=== PATIENT | male | born 1980 | race Caucasian/White ===

== ENCOUNTER 2016-07-31 09:21 | Observation (INO) | payer MEDICAID ==
[2016-07-31] MEDS ORDERED: Sodium Chloride 0.9% 1,000 ML IV ONE (09:23)
[2016-07-31] MEDS ORDERED: Sodium Chloride 0.9% 2.5 ML Syringe FLUSH PRN (09:24)
[2016-07-31] MEDS ORDERED: Sodium Chloride 0.9% 10 ML Syringe FLUSH PRN (09:24)
--- NOTE | 2016-07-31 09:29 | EDM.PDOC ---
ED HPI GENERAL MEDICAL PROBLEM - General Stated Complaint: AMBULANCE Time Seen by Provider: 07/31/16 09:22 - History of Present Illness INITIAL COMMENTS - FREE TEXT/NARRATIVE: HISTORY AND PHYSICAL: History of present illness: Patient is a 35-year-old male who is an inmate at a nursing home and presents with a episode of lightheadedness/near syncope that occurred at rest. The patient denies any cardiac or pulmonary history and does have a history of anxiety and depression, for which he was recently placed on new medication for his depression. He is not currently expressing suicidal ideation and he says that he woke up this morning felt completely normal, went to breakfast, ate normally , and then had the symptoms after that. He said he just felt lightheaded and felt sweaty but did not pass out. The patient says he did not feel dizzy like the room was spinning. He had no chest pain shortness of breath headache extremity weakness pain numbness or tingling abdominal pain nausea or vomiting. Patient is eating and passing normal bowel movements which are now black or bloody. In the ER the patient currently has no symptoms and feels back to his baseline although he does feel somewhat fatigued generalized without any focality. He denies any cough fever chills runny nose or sore throat and has no headache or neck pain. The patient does state that he has a backache on and off for which he takes Tylenol and ibuprofen when he is at home and that is not new or different. According to the nursing home report the patient was more clammy and cool and complained of dizziness and nausea at the time of the event which is different than what he stating to me. He did deny chest pain or shortness of breath at that time. According to the officer at bedside he has been in nursing home for several months and did have a history of drug use in the past. Review of systems: As per history of present illness and below otherwise all systems reviewed and negative. Past medical history: As per history of present illness and as reviewed below otherwise noncontributory. Surgical history: As per history of present illness and as reviewed below otherwise noncontributory. Social history: No reported history of drug or alcohol abuse. Family history: As per history of present illness and as reviewed below otherwise noncontributory. Physical exam: General: Well-developed well-nourished male nontoxic vital signs were reviewed by me. Speaking clearly and easily moving all extremities and is currently in handcuffs with Offficer at bedside HEENT: Atraumatic, normocephalic, pupils reactive, negative for conjunctival pallor or scleral icterus, mucous membranes moist, throat clear, neck supple, nontender, trachea midline. No cervical adenopathy or nuchal rigidity Lungs: Clear to auscultation, breath sounds equal bilaterally, chest nontender. Heart: S1S2, regular, negative for clicks, rubs, or JVD. Abdomen: Soft, nondistended, nontender. Negative for masses or hepatosplenomegaly. Negative for costovertebral tenderness. Pelvis: Stable nontender. Genitourinary: Deferred. Rectal: Deferred. Extremities: Atraumatic, negative for cords or calf pain. Neurovascular unremarkable. Full range of motion without defects or deficits Neuro: Awake, alert, oriented. Cranial nerves II through XII unremarkable. Cerebellum unremarkable. Motor and sensory unremarkable throughout. Exam nonfocal. 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 Antoine; he will review the testing results and come and evaluate the patient personally to decide on disposition. He is aware that the patient has been slowly getting his IV fluids because the patient extending his arm and he has only received 900 cc but we will continue to give IV fluids and reevaluate. 1145: Dr. Antoine has seen and evaluated the patient and would like to admit the patient as observation in telemetry for 23 hours. Patient is agreeable Impression: Near syncope Definitive disposition and diagnosis as appropriate pending reevaluation and review of above. Back Pain Score (Numeric/FACES): 5 - Related Data Allergies Allergy/AdvReac Type Severity Reaction Status Date / Time No Known Allergies Allergy Verified 07/31/16 09:26 Home Meds: Home Meds . [No Known Home Meds] 06/18/14 [History] Escitalopram [Lexapro] 0 mg PO DAILY 07/31/16 [History] Ranitidine HCl [Zantac] 0 mg PO 07/31/16 [History] risperiDONE [Risperdal] 1 mg PO 07/31/16 [History] ED ROS GENERAL - Review of Systems Review Of Systems: ROS reveals no pertinent complaints other than HPI. ED EXAM, GENERAL - Physical Exam Exam: See Below (see dictation) Course - Vital Signs Last Recorded V/S: Last Vital Signs Temp 36.6 C 07/31/16 09:21 Pulse 70 07/31/16 11:09 Resp 16 07/31/16 11:09 BP 93/49 L 07/31/16 11:09 Pulse Ox 98 07/31/16 11:09 Orthostatic Blood Pressure [ 91/47 Standing] Orthostatic Blood Pressure [ 91/43 Sitting] Orthostatic Blood Pressure [ 87/39 Supine] - Orders/Labs/Meds Orders: Active Orders 24 hr Category Date Time Status Patient Status [ADT] Stat ADT 07/31/16 11:52 Ordered Cardiac Monitoring [RC] . DIRECTED Care 07/31/16 09:22 Active EKG Documentation Completion [RC] STAT Care 07/31/16 09:22 Active Orthostatic Vital Signs [RC] ASDIRECTED Care 07/31/16 09:24 Active Oxygen Therapy, ED [RC] ASDIRECTED Care 07/31/16 09:22 Active Pulse Oximetry [RC] ASDIRECTED Care 07/31/16 09:22 Active Sodium Chloride 0.9% [Saline Flush] Med 07/31/16 09:24 Active 10 ml FLUSH ASDIRECTED PRN Sodium Chloride 0.9% [Saline Flush] Med 07/31/16 09:24 Active 2.5 ml FLUSH ASDIRECTED PRN Saline Lock Insert [OM.PC] Stat Oth 07/31/16 09:22 Ordered Medication Orders Sodium Chloride (Saline Flush) 10 ml FLUSH ASDIRECTED PRN PRN Reason: Keep Vein Open Last Admin: 07/31/16 09:48 Dose: 10 ml Sodium Chloride (Saline Flush) 2.5 ml FLUSH ASDIRECTED PRN PRN Reason: Keep Vein Open Last Admin: 07/31/16 09:48 Dose: 2.5 ml Labs: Laboratory Tests 07/31/16 07/31/16 07/31/16 Range/Units 09:36 09:36 09:36 WBC 3.45 L (4.0-11.0) K/uL RBC 4.11 L (4.50-5.90) M/uL Hgb 13.0 (13.0-17.0) g/dL Hct 37.3 L (38.0-50.0) % MCV 90.8 (80.0-98.0) fL MCH 31.6 (27.0-32.0) pg MCHC 34.9 (31.0-37.0) g/dL RDW Std Deviation 41.9 (28.0-62.0) fl RDW Coeff of Roberth 13 (11.0-15.0) % Plt Count 119 L (150-400) K/uL MPV 9.00 (7.40-12.00) fL Neut % (Auto) 64.1 (48.0-80.0) % Lymph % (Auto) 27.2 (16.0-40.0) % [place] % (Auto) 6.1 (0.0-15.0) % Eos % (Auto) 1.7 (0.0-7.0) % Baso % (Auto) 0.9 (0.0-1.5) % Neut # (Auto) 2.2 (1.4-5.7) K/uL Lymph # (Auto) 0.9 (0.6-2.4) K/uL [place] # (Auto) 0.2 (0.0-0.8) K/uL Eos # (Auto) 0.1 (0.0-0.7) K/uL Baso # (Auto) 0.0 (0.0-0.1) K/uL Nucleated RBC % 0.0 /100WBC Nucleated RBCs # 0 K/uL Sodium 142 (136-146) mmol/L Potassium 4.4 (3.5-5.1) mmol/L Chloride 106 (98-110) mmol/L Carbon Dioxide 27 (21-31) mmol/L BUN 25 H (6.0-23.0) mg/dL Creatinine 1.2 (0.6-1.5) mg/dL Est Cr Clr Drug Dosing 107.25 mL/min Estimated GFR (MDRD) > 60.0 ml/min Glucose 142 H (60-110) mg/dL Calcium 9.0 (8.8-10.8) mg/dL Total Bilirubin 0.8 (0.1-1.5) mg/dL AST 10 (5-40) IU/L ALT 15 (8-54) IU/L Alkaline Phosphatase 43 (40-150) Troponin I < 0.10 (0.0-0.29) NG/ML Total Protein 6.6 (6.0-8.0) g/dL Albumin 4.1 (3.5-5.0) g/dL Globulin 2.5 (2.0-3.5) g/dL Albumin/Globulin Ratio 1.6 (1.3-2.8) Lipase 16 (7-80) U/L Urine Color Urine Appearance Urine pH (5.0-8.0) Ur Specific [place] (1.001-1.035) Urine Protein (NEGATIVE) mg/dL Urine Glucose (UA) (NEGATIVE) mg/dL Urine Ketones (NEGATIVE) mg/dL Urine Occult Blood (NEGATIVE) Urine Nitrite (NEGATIVE) Urine Bilirubin (NEGATIVE) Urine Urobilinogen (<2.0) EU/dL Ur Leukocyte Esterase (NEGATIVE) Urine RBC (0-2/HPF) Urine WBC (0-5/HPF) Ur Epithelial Cells (NONE-FEW) Urine Bacteria (NEGATIVE) Urine Mucus (NONE-MOD) Urine Opiates Screen (NEGATIVE) Ur Oxycodone Screen (NEGATIVE) Urine Methadone Screen (NEGATIVE) Ur Barbiturates Screen (NEGATIVE) Ur Phencyclidine Scrn (NEGATIVE) Ur Amphetamine Screen (NEGATIVE) U Methamphetamines Scrn (NEGATIVE) U Benzodiazepines Scrn (NEGATIVE) U Cocaine Metab Screen (NEGATIVE) U Marijuana (THC) Screen (NEGATIVE) 07/31/16 07/31/16 Range/Units 10:10 10:10 WBC (4.0-11.0) K/uL RBC (4.50-5.90) M/uL Hgb (13.0-17.0) g/dL Hct (38.0-50.0) % MCV (80.0-98.0) fL MCH (27.0-32.0) pg MCHC (31.0-37.0) g/dL RDW Std Deviation (28.0-62.0) fl RDW Coeff of Roberth (11.0-15.0) % Plt Count (150-400) K/uL MPV (7.40-12.00) fL Neut % (Auto) (48.0-80.0) % Lymph % (Auto) (16.0-40.0) % [place] % (Auto) (0.0-15.0) % Eos % (Auto) (0.0-7.0) % Baso % (Auto) (0.0-1.5) % Neut # (Auto) (1.4-5.7) K/uL Lymph # (Auto) (0.6-2.4) K/uL [place] # (Auto) (0.0-0.8) K/uL Eos # (Auto) (0.0-0.7) K/uL Baso # (Auto) (0.0-0.1) K/uL Nucleated RBC % /100WBC Nucleated RBCs # K/uL Sodium (136-146) mmol/L Potassium (3.5-5.1) mmol/L Chloride (98-110) mmol/L Carbon Dioxide (21-31) mmol/L BUN (6.0-23.0) mg/dL Creatinine (0.6-1.5) mg/dL Est Cr Clr Drug Dosing mL/min Estimated GFR (MDRD) ml/min Glucose (60-110) mg/dL Calcium (8.8-10.8) mg/dL Total Bilirubin (0.1-1.5) mg/dL AST (5-40) IU/L ALT (8-54) IU/L Alkaline Phosphatase (40-150) Troponin I (0.0-0.29) NG/ML Total Protein (6.0-8.0) g/dL Albumin (3.5-5.0) g/dL Globulin (2.0-3.5) g/dL Albumin/Globulin Ratio (1.3-2.8) Lipase (7-80) U/L Urine Color YELLOW Urine Appearance CLEAR Urine pH 6.0 (5.0-8.0) Ur Specific [place] >= 1.030 (1.001-1.035) Urine Protein NEGATIVE (NEGATIVE) mg/dL Urine Glucose (UA) NEGATIVE (NEGATIVE) mg/dL Urine Ketones NEGATIVE (NEGATIVE) mg/dL Urine Occult Blood NEGATIVE (NEGATIVE) Urine Nitrite NEGATIVE (NEGATIVE) Urine Bilirubin NEGATIVE (NEGATIVE) Urine Urobilinogen 0.2 (<2.0) EU/dL Ur Leukocyte Esterase NEGATIVE (NEGATIVE) Urine RBC 0-1 (0-2/HPF) Urine WBC 1-2 (0-5/HPF) Ur Epithelial Cells FEW (NONE-FEW) Urine Bacteria FEW (NEGATIVE) Urine Mucus MODERATE (NONE-MOD) Urine Opiates Screen NEGATIVE (NEGATIVE) Ur Oxycodone Screen NEGATIVE (NEGATIVE) Urine Methadone Screen NEGATIVE (NEGATIVE) Ur Barbiturates Screen NEGATIVE (NEGATIVE) Ur Phencyclidine Scrn NEGATIVE (NEGATIVE) Ur Amphetamine Screen NEGATIVE (NEGATIVE) U Methamphetamines Scrn NEGATIVE (NEGATIVE) U Benzodiazepines Scrn NEGATIVE (NEGATIVE) U Cocaine Metab Screen NEGATIVE (NEGATIVE) U Marijuana (THC) Screen NEGATIVE (NEGATIVE) Meds: Medications Generic Name Dose Route Start Last Admin Trade Name Freq PRN Reason Stop Dose Admin Sodium Chloride 10 ml 07/31/16 09:24 07/31/16 09:48 Saline Flush FLUSH 10 ml ASDIRECTED PRN Administration Keep Vein Open Sodium Chloride 2.5 ml 07/31/16 09:24 07/31/16 09:48 Saline Flush FLUSH 2.5 ml ASDIRECTED PRN Administration Keep Vein Open Discontinued Medications Generic Name Dose Route Start Last Admin Trade Name Freq PRN Reason Stop Dose Admin Sodium Chloride 1,000 mls @ 999 mls/hr 07/31/16 09:23 07/31/16 09:48 Normal Saline IV 07/31/16 10:23 999 mls/hr STAT ONE Administration Departure - Departure Time of Disposition: 11:56 Disposition: Refer to Observation Condition: good Clinical Impression: Near syncope - My Orders Last 24 Hours: My Active Orders 07/31/16 09:22 Cardiac Monitoring [RC] . DIRECTED EKG Documentation Completion [RC] STAT Oxygen Therapy, ED [RC] ASDIRECTED Pulse Oximetry [RC] ASDIRECTED Saline Lock Insert [OM.PC] Stat 07/31/16 09:24 Orthostatic Vital Signs [RC] ASDIRECTED Sodium Chloride 0.9% [Saline Flush] 10 ml FLUSH ASDIRECTED PRN Sodium Chloride 0.9% [Saline Flush] 2.5 ml FLUSH ASDIRECTED PRN 07/31/16 11:52 Patient Status [ADT] Stat - Assessment/Plan Last 24 Hours: My Active Orders 07/31/16 09:22 Cardiac Monitoring [RC] . DIRECTED EKG Documentation Completion [RC] STAT Oxygen Therapy, ED [RC] ASDIRECTED Pulse Oximetry [RC] ASDIRECTED Saline Lock Insert [OM.PC] Stat 07/31/16 09:24 Orthostatic Vital Signs [RC] ASDIRECTED Sodium Chloride 0.9% [Saline Flush] 10 ml FLUSH ASDIRECTED PRN Sodium Chloride 0.9% [Saline Flush] 2.5 ml FLUSH ASDIRECTED PRN 07/31/16 11:52 Patient Status [ADT] Stat
--- NOTE | 2016-07-31 10:01 | CR ---
EXAMINATION: Portable chest radiograph. HISTORY: Shortness of breath. FINDINGS: The trachea is midline. The cardiomediastinal silhouette is within normal limits. No pulmonary infil trates, effusions or pneumothorax. Osseous structures appear unremarkable. IMPRESSION: No acute cardiopulmonary process.
[2016-07-31 10:20] LABS: CHLORIDE,CL 106 mmol/L (98-110); SODIUM,NA 142 mmol/L (136-146)
[2016-07-31] MEDS ORDERED: Ondansetron 4 MG Tab.DIS PO PRN (12:39)
[2016-07-31] MEDS ORDERED: Temazepam 15 MG Cap PO PRN (12:39)
[2016-07-31] MEDS ORDERED: Acetaminophen 325 MG Tab PO PRN (12:39)
[2016-07-31] MEDS: Enoxaparin 40 MG/0.4 ML Syringe SUBCUT SCH (13:36)
[2016-07-31] MEDS: Sodium Chloride 0.9% 1,000 ML IV SCH ×2 (13:37→21:10)
--- NOTE | 2016-07-31 15:12 | PCM.HP ---
H&P History of Present Illness - General Date of Service: 07/31/16 Admit Problem/Dx: 35 yo male inmate at intermediate admitted 07/31/16 for near syncope with pmh of depression and anxiety. Patient presented to ED with an episode of lightheadedness/near syncope that occurred at rest. Patient denied any his history of cardiopulmonary disease. He did report a history of anxiety and depression, for which he was recently placed on new medication for the depression. He was not expressing suicidal ideation and he said that he woke up on day of admission feeling completely normal, went to breakfast, ate normally, and then had the symptoms after that. He said he just felt "lightheaded" and sweaty but did not pass out. The patient did not feel dizzy like the room was spinning. He had no associated chest pain, shortness of breath, headache, extremity weakness, pain, numbness or tingling, abdominal pain, nausea, or vomiting. Patient reporting eating and eliminating normally without dark or bloody stools. In the ED the patient had no symptoms and felt back to his baseline although he did feel somewhat fatigued. He denied any cough fever chills runny nose sore throat headache or neck pain. According to the intermediate they reportted that the patient was clammy, cool and complained of dizziness and nausea at the time of the event. Raven in room at ED stated that patient was "white as a ghost". According to the officer at bedside he has been in intermediate for several months and did have a history of drug use in the past. In ED, CBC, CMP, UA, urine tox, troponin and CXR were all unremarkable. There was noted some orhtostatic hypotension and urine specific gravity was mildly elevated. He was given a 1L normal saline bolus. Patient was admitted for observation for near syncope. Source of Information: Patient, Police History Limitations: Reports: No limitations - History of Present Illness Initial Comments - Free Text/Narative: 35 yo male inmate at intermediate admitted 07/31/16 for near syncope with pmh of depression and anxiety. Patient presented to ED with an episode of lightheadedness/near syncope that occurred at rest. Patient denied any his history of cardiopulmonary disease. He did report a history of anxiety and depression, for which he was recently placed on new medication for the depression. He was not expressing suicidal ideation and he said that he woke up on day of admission feeling completely normal, went to breakfast, ate normally, and then had the symptoms after that. He said he just felt "lightheaded" and sweaty but did not pass out. The patient did not feel dizzy like the room was spinning. He had no associated chest pain, shortness of breath, headache, extremity weakness, pain, numbness or tingling, abdominal pain, nausea, or vomiting. Patient reporting eating and eliminating normally without dark or bloody stools. In the ED the patient had no symptoms and felt back to his baseline although he did feel somewhat fatigued. He denied any cough fever chills runny nose sore throat headache or neck pain. According to the intermediate they reportted that the patient was clammy, cool and complained of dizziness and nausea at the time of the event. Raven in room at ED stated that patient was "white as a ghost". According to the officer at bedside he has been in intermediate for several months and did have a history of drug use in the past. In ED, CBC, CMP, UA, urine tox, troponin and CXR were all unremarkable. There was noted some orhtostatic hypotension and urine specific gravity was mildly elevated. He was given a 1L normal saline bolus. Patient was admitted for observation for near syncope. Back Pain Score (Numeric/FACES): 5 - Related Data Allergies/Adverse Reactions: Allergies Allergy/AdvReac Type Severity Reaction Status Date / Time No Known Allergies Allergy Verified 07/31/16 09:26 Home Medications: Home Meds . [No Known Home Meds] 06/18/14 [History] Escitalopram [Lexapro] 0 mg PO DAILY 07/31/16 [History] Ranitidine HCl [Zantac] 0 mg PO 07/31/16 [History] risperiDONE [Risperdal] 1 mg PO 07/31/16 [History] Past Medical History - Past Health History Medical/Surgical History: Denies Medical/Surgical History HEENT History: Reports: Other (see below) Other HEENT History: client reports blurred vision onset 1 month ago Psychiatric History: Reports: Anxiety, Depression Dermatologic History: Reports: Other (see below) Other Dermatologic History: Skin discoloration to right flank and abdomen, medial bilateral thighs, and posterior bilateral knees - Infectious Disease History Infectious Disease History: Reports: Chicken pox - Past Surgical History HEENT Surgical History: Reports: None Social & Family History - Family History Family Medical History: Noncontributory Respiratory: Reports: Other (see below) Other Respiratory Family Hisory: secondary to smoking Psychiatric: Reports: Schizophrenia Oncologic: Reports: Brain, Lung - Tobacco Use Smoking Status *Q: Former Smoker Years of Tobacco use: 1 Used Tobacco, but Quit: Yes Month Tobacco Last Used: January 2016 Second Hand Smoke Exposure: No - Caffeine Use Caffeine Use: Reports: None - Alcohol Use Days Per Week of Alcohol Use: 2 Number of Drinks Per Day: 2 Total Drinks Per Week: 4 - Recreational Drug Use Recreational Drug Use: Yes Drug Use in Last 12 Months: Yes Recreational Drug Type: Reports: Cocaine, Marijuana/Hashish Recreational Drug Use Frequency: Not Used In Over 5 Months H&P Review of Systems - Review of Systems: Review Of Systems: See Below General: Reports: fatigue, diaphoresis. Denies: fever, chills, malaise, weakness HEENT: Denies: headaches, sinus congestion, sore throat Pulmonary: Denies: Shortness of Breath, Wheezing, Pleuritic Chest Pain, Cough, Sputum, Hemoptysis Cardiovascular: Reports: lightheadedness. Denies: chest pain, palpitations Gastrointestinal: Denies: Abdominal pain, Black stool, Bloody stool, Diarrhea, Nausea, Vomiting Genitourinary: Denies: dysuria, hematuria Musculoskeletal: Denies: neck pain, leg pain Skin: Denies: cyanosis Psychiatric: Reports: depression, anxiety. Denies: confusion Neurological: Reports: Dizziness. Denies: Confusion Exam - Exam Exam: See Below - Vital Signs Vital Signs: Last Vital Signs Temp 36.8 C 07/31/16 12:45 Pulse 61 07/31/16 12:45 Resp 16 07/31/16 12:45 BP 110/63 07/31/16 12:45 Pulse Ox 98 07/31/16 12:45 Weight: 89.9 kg - Exam Quality Assessment: DVT prophylaxis General: alert, oriented, cooperative HEENT: Conjunctiva clear, EACs clear, EOMI, Hearing intact, Mucosa moist & pink , Nares patent, Normal nasal septum, Posterior pharynx clear, PERRLA Neck: supple, trachea midline, 2 Lungs: Clear to auscultation, Normal respiratory effort Cardiovascular: regular rate, regular rhythm, normal S1, normal S2 Abdomen: normal bowel sounds, soft Back Exam: normal inspection Extremities: normal inspection, normal pulses. No: calf tenderness, edema Peripheral Pulses: 2+: radial (L), radial (R), posterior tibial (L), posterior tibial (R), dorsalis pedis (L), dorsalis pedis (R) Neurological: cranial nerves intact, reflexes equal bilateral Neuro Extensive - Mental Status: alert, oriented x3, normal mood/affect Neuro Extensive - Motor, Sensory, Reflexes: CN II-XII intact Psychiatric: alert, normal affect, normal mood - Patient Data Result Diagrams: 07/31/16 09:36 07/31/16 09:36 *Q Meaningful Use (ADM) - VTE *Q VTE Criteria *Q: - Stroke *Q Stroke Criteria *Q: - AMI *Q AMI Criteria *Q: - Problem List (1) Near syncope SNOMED Code(s): 116533085 ICD Code: R55 - SYNCOPE AND COLLAPSE Status: Acute Priority: High Current Visit: Yes Problem List Initiated/Reviewed/Updated: Yes Orders Last 24hrs: Active Orders 24 hr Category Date Time Status Patient Status [ADT] Routine ADT 07/31/16 12:39 Active Antiembolic Devices [RC] PER UNIT ROUTINE Care 07/31/16 12:42 Active Hemoccult [Fecal Occult Blood Collection] [RC] Care 07/31/16 14:11 Active ASDIRECTED Oxygen Therapy [RC] PRN Care 07/31/16 12:39 Active Telemetry Monitoring [Cardiac Monitoring] [RC] Q8H Care 07/31/16 12:45 Active Up With Assistance [RC] ASDIRECTED Care 07/31/16 12:39 Active Vital Signs [RC] Q4H Care 07/31/16 12:39 Active Regular Diet [DIET] Diet 07/31/16 Lunch Active BASIC METABOLIC PANEL,BMP [CHEM] DAILY Lab 08/01/16 05:00 Ordered BASIC METABOLIC PANEL,BMP [CHEM] DAILY Lab 08/02/16 05:00 Ordered BASIC METABOLIC PANEL,BMP [CHEM] DAILY Lab 08/03/16 05:00 Ordered CBC WITH AUTO DIFF [HEME] DAILY Lab 08/01/16 05:00 Ordered CBC WITH AUTO DIFF [HEME] DAILY Lab 08/02/16 05:00 Ordered CBC WITH AUTO DIFF [HEME] DAILY Lab 08/03/16 05:00 Ordered Hemoccult [OCCULT BLOOD DIAGNOSTIC] [OP] Routine Lab 07/31/16 14:11 Uncollected MAGNESIUM [CHEM] AM Lab 08/01/16 05:11 Ordered Acetaminophen [Tylenol] Med 07/31/16 12:39 Active 650 mg PO Q4H PRN Enoxaparin [Lovenox] Med 07/31/16 12:45 Active 40 mg SUBCUT DAILY Ondansetron [Zofran ODT] Med 07/31/16 12:39 Active 4 mg PO Q4H PRN Sodium Chloride 0.9% [Normal Saline] 1,000 ml Med 07/31/16 12:45 Active IV ASDIRECTED Temazepam [Restoril] Med 07/31/16 12:39 Active 15 mg PO BEDTIME PRN Sequential Compression Device [OM.PC] Per Unit Routine Oth 07/31/16 12:41 Ordered Resuscitation Status Routine Resus Stat 07/31/16 12:39 Ordered Medication Orders Acetaminophen (Tylenol) 650 mg PO Q4H PRN PRN Reason: Pain (Mild 1-3)/fever Enoxaparin Sodium (Lovenox) 40 mg SUBCUT DAILY [facility] Last Admin: 07/31/16 13:36 Dose: 40 mg Sodium Chloride (Normal Saline) 1,000 mls @ 150 mls/hr IV ASDIRECTED TOSHA Last Admin: 07/31/16 13:37 Dose: 150 mls/hr Ondansetron HCl (Zofran Odt) 4 mg PO Q4H PRN PRN Reason: nausea, able to take PO Sodium Chloride (Saline Flush) 10 ml FLUSH ASDIRECTED PRN PRN Reason: Keep Vein Open Last Admin: 07/31/16 09:48 Dose: 10 ml Sodium Chloride (Saline Flush) 2.5 ml FLUSH ASDIRECTED PRN PRN Reason: Keep Vein Open Last Admin: 07/31/16 09:48 Dose: 2.5 ml Temazepam (Restoril) 15 mg PO BEDTIME PRN PRN Reason: Sleep Assessment/Plan Comment:: 35 yo male inmate at intermediate admitted 07/31/16 for near syncope with pmh of depression and anxiety. Near syncope: Orthostatic in ED prior to 1 L bolus. Most likely dehydration, no fever, chills, chest pain, sob. No previous cardiopulmonary history Will place on telemetry overnight for observation. IVF resus at 150 ml/hr. Patient does take zantac for heartburn no reported dark tarry stools or blood stools. Will get hemocult. Depression and anxiety: No current suicidal or homicidal ideations will restart home meds. VTE: Lovenox subq Dispo: Tomorrow pending.
[2016-07-31] MEDS: Famotidine 20 MG Tab PO SCH (20:56)
[2016-07-31] MEDS ORDERED: risperiDONE 1 MG Tab PO SCH (21:00)
[2016-08-01 05:45] LABS: CHLORIDE,CL 110 mmol/L (98-110); SODIUM,NA 143 mmol/L (136-146)
[2016-08-01] MEDS: Sodium Chloride 0.9% 1,000 ML IV SCH (06:58)
[2016-08-01 08:40] VITALS: BP 125/79
[2016-08-01] MEDS: Famotidine 20 MG Tab PO SCH (08:41)
[2016-08-01] MEDS: Enoxaparin 40 MG/0.4 ML Syringe SUBCUT SCH (08:42)
--- NOTE | 2016-08-01 08:46 | PCM.DCSUM1 ---
Discharge Summary - Discharge Data Discharge Date: 08/01/16 Discharge Disposition: DC/Tfer to [facility] Enf 21 Condition: Good - Patient Summary/Data Hospital Course: 35 yo male who was observed overnight on telemetry for near syncope. He had a CMP, CBC and chest x-ray which were unremarkable. He has had no repeat of his symptoms of lightheadedness. He is being discharge back to [facility]. - Discharge Plan Home Medications: Home Meds Ranitidine HCl [Zantac] 150 mg PO BID 07/31/16 [History] Venlafaxine HCl [Venlafaxine ER] 75 mg PO DAILY 07/31/16 [History] risperiDONE [Risperdal] 1.5 mg PO BEDTIME 07/31/16 [History] - Patient Data Vitals - Most Recent: Last Vital Signs Temp 36.9 C 08/01/16 08:00 Pulse 63 08/01/16 08:00 Resp 16 08/01/16 08:00 BP 125/79 08/01/16 08:00 Pulse Ox 97 08/01/16 08:00 Orthostatic Blood Pressure [ 126/92 Standing] Orthostatic Blood Pressure [ 114/75 Sitting] Orthostatic Blood Pressure [ 128/86 Supine] Weight - Most Recent: 89.9 kg I&O - Last 24 hours: Intake & Output 07/31/16 08/01/16 08/01/16 22:59 06:59 14:59 Intake Total 2170 600 Output Total 790 450 Balance 1380 150 Lab Results - Last 24 hrs: Laboratory Results - last 24 hr 08/01/16 08/01/16 08/01/16 Range/Units 04:57 04:57 04:57 WBC 4.16 (4.0-11.0) K/uL RBC 3.96 L (4.50-5.90) M/uL Hgb 12.6 L (13.0-17.0) g/dL Hct 35.4 L (38.0-50.0) % MCV 89.4 (80.0-98.0) fL MCH 31.8 (27.0-32.0) pg MCHC 35.6 (31.0-37.0) g/dL RDW Std Deviation 40.0 (28.0-62.0) fl RDW Coeff of Roberth 13 (11.0-15.0) % Plt Count 122 L (150-400) K/uL MPV 8.70 (7.40-12.00) fL Neut % (Auto) 47.4 L (48.0-80.0) % Lymph % (Auto) 42.5 H (16.0-40.0) % [place] % (Auto) 7.2 (0.0-15.0) % Eos % (Auto) 2.4 (0.0-7.0) % Baso % (Auto) 0.5 (0.0-1.5) % Neut # (Auto) 2.0 (1.4-5.7) K/uL Lymph # (Auto) 1.8 (0.6-2.4) K/uL [place] # (Auto) 0.3 (0.0-0.8) K/uL Eos # (Auto) 0.1 (0.0-0.7) K/uL Baso # (Auto) 0.0 (0.0-0.1) K/uL Nucleated RBC % 0.0 /100WBC Nucleated RBCs # 0 K/uL Sodium 143 (136-146) mmol/L Potassium 4.3 (3.5-5.1) mmol/L Chloride 110 (98-110) mmol/L Carbon Dioxide 26 (21-31) mmol/L BUN 16 (6.0-23.0) mg/dL Creatinine 0.9 (0.6-1.5) mg/dL Est Cr Clr Drug Dosing 143.00 mL/min Estimated GFR (MDRD) > 60.0 ml/min Glucose 89 (60-110) mg/dL Calcium 8.9 (8.8-10.8) mg/dL Magnesium 1.7 (1.5-2.3) mEq/L [facility] Results - Last 24 hrs: Microbiology 07/31/16 18:50 Stool Occult Blood ([facility]) - Final Stool / Feces Med Orders - Current: Current Medications Acetaminophen (Tylenol) 650 mg PO Q4H PRN PRN Reason: Pain (Mild 1-3)/fever Enoxaparin Sodium (Lovenox) 40 mg SUBCUT DAILY [facility] Last Admin: 08/01/16 08:42 Dose: Not Given Famotidine (Pepcid) 20 mg PO BID [facility] Last Admin: 08/01/16 08:41 Dose: 20 mg Sodium Chloride (Normal Saline) 1,000 mls @ 100 mls/hr IV ASDIRECTED [facility] Last Admin: 08/01/16 06:58 Dose: 100 mls/hr Ondansetron HCl (Zofran Odt) 4 mg PO Q4H PRN PRN Reason: nausea, able to take PO Risperidone (Risperidal) 1.5 mg PO BEDTIME [facility] Last Admin: 07/31/16 21:01 Dose: 1.5 mg Sodium Chloride (Saline Flush) 10 ml FLUSH ASDIRECTED PRN PRN Reason: Keep Vein Open Last Admin: 07/31/16 09:48 Dose: 10 ml Sodium Chloride (Saline Flush) 2.5 ml FLUSH ASDIRECTED PRN PRN Reason: Keep Vein Open Last Admin: 07/31/16 09:48 Dose: 2.5 ml Temazepam (Restoril) 15 mg PO BEDTIME PRN PRN Reason: Sleep Venlafaxine HCl (Effexor Xr) 75 mg PO DAILY [facility] Last Admin: 08/01/16 08:41 Dose: 75 mg Discontinued Medications Sodium Chloride (Normal Saline) 1,000 mls @ 999 mls/hr IV STAT ONE Stop: 07/31/16 10:23 Last Admin: 07/31/16 09:48 Dose: 999 mls/hr *Q Meaningful Use (DIS) - VTE *Q VTE Criteria *Q: - Stroke *Q Stroke Criteria *Q: - AMI *Q AMI Criteria *Q:
[2016-08-01] MEDS ORDERED: Venlafaxine 75 MG Cap.ER PO SCH (09:00)
== END 2016-08-01 09:26 ==
LOC: MW.ED 09:21 → UNDOADMOB 12:05 → MW.MS 12:05
PROVIDERS: ADMIT Internal Medicine; ATTEND Internal Medicine
DX: R55 Syncope and collapse (principal); R42 Dizziness and giddiness; F41.9 Anxiety disorder, unspecified; F32.9 Major depressive disorder, single episode, unspecified; Z87.891 Personal history of nicotine dependence; Z79.899 Other long term (current) drug therapy
CPT/HCPCS: 36415; 71010; 80048; 80053; 80305; 81001; 82272; 83690; 83735; 84484; 85025; 93005; 96360; 96361; 96372; 99285; A9270; G0378; J1650; J7040